=== PATIENT | male | born 1955 | race Two or more races ===

== ENCOUNTER 2023-01-22 11:51 | Outpatient (CLI) | payer MEDICAID, MEDICARE | END 2023-01-22 23:59 | disposition short-term general hospital (02) | LOC: EMS 11:51 | DX: R42 Dizziness and giddiness (principal); R47.1 Dysarthria and anarthria; R61 Generalized hyperhidrosis; R73.9 Hyperglycemia, unspecified | CPT/HCPCS: A0425; A0429 ==

== ENCOUNTER 2023-04-02 09:14 | Outpatient (CLI) | payer MEDICARE ==
[2023-04-02 12:33] LABS: BASOPHILS % (AUTO) 0.4 %; EOSINOPHILS # (AUTO) 0.1 10^3/uL (0.0-0.7); EOSINOPHILS % (AUTO) 1.7 %; HCT - HEMATOCRIT 39.1 % (42.0-52.0); HGB - HEMOGLOBIN 12.9 g/dL (14.0-18.0); LYMPHOCYTES # (AUTO) 0.9 10^3/uL (1.5-3.5); LYMPHOCYTES % (AUTO) 19.2 %; MEAN CORPUSCULAR HEMOGLOBIN 28.9 pg (27.0-31.0); MEAN CORPUSCULAR VOLUME 87.5 fL (80.0-94.0); MEAN PLATELET VOLUME 9.3 fL (7.4-11.4); MONOCYTES # (AUTO) 0.2 10^3/uL (0.0-1.0); NEUTROPHILS # (AUTO) 3.4 10^3/uL (1.5-6.6); NEUTROPHILS % (AUTO) 73.3 %; PLT - PLATELET COUNT 273 10^3/uL (130-450); RED BLOOD COUNT 4.47 10^6/uL (4.70-6.10); RED CELL DISTRIBUTION WIDTH 12.7 % (12.0-15.0); WHITE BLOOD COUNT 4.6 x10^3/uL (4.8-10.8)
[2023-04-02 13:04] LABS: ALBUMIN 4.2 g/dL (3.2-5.5); ALBUMIN/GLOBULIN RATIO 1.4 (1.0-2.2); ALKALINE PHOSPHATASE 96 IU/L (42-121); ALT ALANINE AMINOTRANSFERASE 25 IU/L (10-60); AST ASPARTATE AMINOTRANSFERASE 24 IU/L (10-42); BILIRUBIN,TOTAL 0.5 mg/dL (0.2-1.0); BUN - BLOOD UREA NITROGEN 28 mg/dL (6-20); CALCIUM 9.6 mg/dL (8.5-10.3); CARBON DIOXIDE - CO2 26 mmol/L (21-32); CHLORIDE 100 mmol/L (101-111); CHOL/HDL RATIO 4.4 (<5.0); CHOLESTEROL 200 mg/dL; CREATININE 2.1 mg/dL (0.6-1.3); GFR - MDRD 32 (>89); GLUCOSE 318 mg/dL (74-104); HDL CHOLESTEROL 45 mg/dL; LDL CHOLESTEROL,CALCULATED 114 mg/dL; LDL/HDL RATIO 2.5 (<3.6); POTASSIUM 5.2 mmol/L (3.5-4.5); SODIUM 135 mmol/L (135-145); TOTAL PROTEIN 7.2 g/dL (6.4-8.9); TRIGLYCERIDES 206 mg/dL (48-352); VLDL CHOLESTEROL 41 mg/dL
[2023-04-02 13:12] LABS: CREATININE,URINE 78.7 mg/dL; ESTIMATED AVERAGE GLUCOSE 298 mg/dL (70-100)
[2023-04-02 13:22] LABS: MICROALBUMIN,URINE 202.7 mg/dL
== END 2023-04-02 09:15 | disposition home or self-care (01) ==
LOC: LAB.N 09:14
PROVIDERS: ATTEND Physician Assistant
DX: E10.9 Type 1 diabetes mellitus without complications (principal); Z12.5 Encounter for screening for malignant neoplasm of prostate
CPT/HCPCS: 36415; 80053; 80061; 82043; 82570; 83036; 85025; 86341; G0103; 81599; 83721; 84153

== ENCOUNTER 2023-04-20 09:22 | Outpatient (CLI) | payer MEDICARE ==
[2023-04-20 12:26] LABS: CALCIUM 8.5 mg/dL (8.5-10.3); POTASSIUM 4.5 mmol/L (3.5-4.5)
== END 2023-04-20 09:23 | disposition home or self-care (01) ==
LOC: LAB.N 09:22
PROVIDERS: ATTEND Physician Assistant
DX: E87.5 Hyperkalemia (principal)
CPT/HCPCS: 36415; 80048

== ENCOUNTER 2023-07-02 12:24 | Outpatient (CLI) | payer MEDICARE ==
[2023-07-02 18:20] LABS: ALBUMIN 3.6 g/dL (3.2-5.5); ALBUMIN/GLOBULIN RATIO 1.2 (1.0-2.2); BILIRUBIN,TOTAL 0.5 mg/dL (0.2-1.0); CREATININE 1.8 mg/dL (0.6-1.3); POTASSIUM 4.3 mmol/L (3.5-4.5); TOTAL PROTEIN 6.7 g/dL (6.4-8.9)
[2023-07-02 18:24] LABS: BASOPHILS % (AUTO) 0.7 %; EOSINOPHILS # (AUTO) 0.2 10^3/uL (0.0-0.7); EOSINOPHILS % (AUTO) 3.7 %; HCT - HEMATOCRIT 38.3 % (42.0-52.0); HGB - HEMOGLOBIN 12.4 g/dL (14.0-18.0); LYMPHOCYTES # (AUTO) 1.6 10^3/uL (1.5-3.5); LYMPHOCYTES % (AUTO) 28.7 %; MEAN CORPUSCULAR HEMOGLOBIN 29.1 pg (27.0-31.0); MEAN CORPUSCULAR HGB CONC 32.4 g/dL (32.0-36.0); MEAN CORPUSCULAR VOLUME 89.9 fL (80.0-94.0); MEAN PLATELET VOLUME 9.2 fL (7.4-11.4); MONOCYTES # (AUTO) 0.3 10^3/uL (0.0-1.0); MONOCYTES % (AUTO) 5.7 %; NEUTROPHILS # (AUTO) 3.4 10^3/uL (1.5-6.6); NEUTROPHILS % (AUTO) 60.8 %; PLT - PLATELET COUNT 322 10^3/uL (130-450); RED BLOOD COUNT 4.26 10^6/uL (4.70-6.10); RED CELL DISTRIBUTION WIDTH 12.1 % (12.0-15.0); WHITE BLOOD COUNT 5.6 x10^3/uL (4.8-10.8)
[2023-07-02 21:05] LABS: ESTIMATED AVERAGE GLUCOSE 246 mg/dL (70-100); HEMOGLOBIN A1c% 10.2 % (4.27-6.07)
== END 2023-07-02 12:25 | disposition home or self-care (01) ==
LOC: LAB.N 12:24
PROVIDERS: ATTEND Physician Assistant
DX: E11.21 Type 2 diabetes mellitus with diabetic nephropathy (principal)
CPT/HCPCS: 36415; 80053; 83036; 85025

== ENCOUNTER 2023-12-27 10:06 | Outpatient (CLI) | payer MEDICARE ==
[2023-12-27 12:12] LABS: BASOPHILS % (AUTO) 0.4 %; EOSINOPHILS # (AUTO) 0.2 10^3/uL (0.0-0.7); EOSINOPHILS % (AUTO) 3.9 %; HCT - HEMATOCRIT 40.3 % (42.0-52.0); HGB - HEMOGLOBIN 13.2 g/dL (14.0-18.0); LYMPHOCYTES # (AUTO) 1.3 10^3/uL (1.5-3.5); LYMPHOCYTES % (AUTO) 28.4 %; MEAN CORPUSCULAR HEMOGLOBIN 29.2 pg (27.0-31.0); MEAN CORPUSCULAR HGB CONC 32.8 g/dL (32.0-36.0); MEAN CORPUSCULAR VOLUME 89.2 fL (80.0-94.0); MEAN PLATELET VOLUME 9.6 fL (7.4-11.4); MONOCYTES # (AUTO) 0.3 10^3/uL (0.0-1.0); MONOCYTES % (AUTO) 5.6 %; NEUTROPHILS # (AUTO) 2.8 10^3/uL (1.5-6.6); NEUTROPHILS % (AUTO) 61.1 %; PLT - PLATELET COUNT 243 10^3/uL (130-450); RED BLOOD COUNT 4.52 10^6/uL (4.70-6.10); RED CELL DISTRIBUTION WIDTH 12.4 % (12.0-15.0); WHITE BLOOD COUNT 4.6 x10^3/uL (4.8-10.8)
[2023-12-27 12:35] LABS: ALBUMIN 3.8 g/dL (3.2-5.5); ALBUMIN/GLOBULIN RATIO 1.4 (1.0-2.2); BILIRUBIN,TOTAL 0.5 mg/dL (0.2-1.0); CREATININE 2.3 mg/dL (0.6-1.3); TOTAL PROTEIN 6.5 g/dL (6.4-8.9)
[2023-12-27 14:20] LABS: ESTIMATED AVERAGE GLUCOSE 223 mg/dL (70-100); HEMOGLOBIN A1c% 9.4 % (4.27-6.07)
== END 2023-12-27 10:07 | disposition home or self-care (01) ==
LOC: LAB.N 10:06
PROVIDERS: ATTEND Physician Assistant
DX: E11.21 Type 2 diabetes mellitus with diabetic nephropathy (principal)
CPT/HCPCS: 36415; 80053; 83036; 85025